=== PATIENT | female | born 1955 | race Caucasian/White ===

== ENCOUNTER 2017-08-12 01:02 | Emergency (ER) | payer MEDICAID ==
[~2017-08-12] VITALS: Ht 162.6 cm; Wt 66.3 kg
[~2017-08-12 01:02] MED LIST: ALBU17I INH; IBUP400T20 PO; PRED20 PO; TRIA.1%T MT; Z.0.OXYGEN INH; nebulizer
[2017-08-12 01:06] VITALS: BP 142/107; PULSE 84; RESP 18; TEMP 97.2; O2SAT 98
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
== END 2017-08-12 02:07 | disposition left against medical advice (07) ==
LOC: PHED 01:02
DX: M54.2 Cervicalgia (principal); M54.9 Dorsalgia, unspecified; J44.9 Chronic obstructive pulmonary disease, unspecified; J45.909 Unspecified asthma, uncomplicated; Z79.899 Other long term (current) drug therapy; Z88.2 Allergy status to sulfonamides; Z88.8 Allergy status to other drugs, medicaments and biological substances
CPT/HCPCS: 99281